=== PATIENT | female | born 1935 | race Caucasian/White ===

== ENCOUNTER 2017-09-05 09:02 | Day surgery (SDC) | payer MEDICARE, MEDICAID ==
[~2017-09-05 09:02] MED LIST: Lactated Ringers 1,000 ML IV SCH; Sodium Chloride 0.9% 5 ML Syringe FLUSH PRN
[2017-09-05] MEDS ORDERED: Ketamine 500 mg/10 ML MDV ONE (09:59)
[2017-09-05] MEDS ORDERED: Ketamine 500 mg/10 ML MDV IV ONE (10:00)
[2017-09-05] MEDS ORDERED: Midazolam 1 MG/ML 2 ML SDV IV ONE (10:00)
[2017-09-05] MEDS ORDERED: Bupivacaine 0.5%/EPINEPHrine 1:200,000 30 ML SDV ONE (10:01)
[2017-09-05] MEDS ORDERED: Bupivacaine 0.5% 30 ML SDV ONE (10:01)
[2017-09-05] MEDS ORDERED: Midazolam 1 MG/ML 2 ML SDV ONE (10:14)
[2017-09-05] MEDS ORDERED: Bupivacaine 0.5%/EPINEPHrine 1:200,000 30 ML SDV INFILT ONE (10:16)
--- NOTE | 2017-09-05 10:33 | PCM.OPNOTE ---
- General Post-Op/Procedure Note Date of Surgery/Procedure: 09/05/17 Operative Procedure(s): Excision of carcinoma from the right ear. 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 Incompletely excised. Postoperative diagnosis: As above. Uncooperative patient. Procedure performed: Excision of basal cell carcinoma right ear. Informed consent was obtained from the patient. All possible competitions were thoroughly discussed. The patient understood and wished to proceed. She was kept in the supine position. The head was turned to the left side. Here prep was performed with ChloraPrep. Marcaine 0.5% with epinephrine was used. An elliptical skin incision was made. The carcinoma was excised. The defect was closed with 2 layers using 4-0 Polysorb and 4-0 nylon. A sterile dressings applied. The patient tolerated procedure well. There were no comp occasions. IV ketamine and Versed were used for this purpose.
[2017-09-05 16:23] VITALS: BP 171/70
--- NOTE | 2017-10-12 09:52 | OR ---
DATE OF SURGERY: 09/05/2017 SURGEON: Gualberto Philip MD ADDENDUM: This was a basal cell carcinoma excision of the right ear. The size of the lesion is 1.1 cm. /[id number]/MODL
== END 2017-09-05 12:05 | disposition home or self-care (01) ==
LOC: KA.SDS 09:02
PROVIDERS: ATTEND Family Medicine
DX: D23.21 Other benign neoplasm of skin of right ear and external auricular canal (principal); L90.5 Scar conditions and fibrosis of skin; H66.91 Otitis media, unspecified, right ear; T16.1XXA Foreign body in right ear, initial encounter; Z88.8 Allergy status to other drugs, medicaments and biological substances; E03.9 Hypothyroidism, unspecified; I10 Essential (primary) hypertension; G89.29 Other chronic pain; M54.5 Low back pain; Z79.899 Other long term (current) drug therapy
CPT/HCPCS: 00126; 11440; 12051; 88305; J2250